=== PATIENT | female | born 1945 | race Hispanic/Latino ===

== ENCOUNTER 2016-12-07 08:49 | Day surgery (SDC) | payer MEDICARE ==
[2016-12-06 12:33] VITALS: BMI 26.1
[2016-12-07 09:17] LABS: BASO # 0.1 K/uL (0.0-0.2); BASO % 1.1 % (0.0-2.0); EOS # 0.2 K/uL (0.0-0.7); EOS % 3.1 % (0.0-4.0); HEMATOCRIT 41.5 % (34.0-47.0); LYMPH # 1.6 K/uL (1.0-4.3); LYMPH % 20.7 % (20.0-40.0); MEAN CELL VOLUME 86.8 fL (81.0-99.0); MEAN CORPUSCULAR HEMOGLOBIN 28.9 pg (27.0-31.0); MEAN CORPUSCULAR HGB CONC 33.3 g/dL (33.0-37.0); MONO # 0.7 K/uL (0.0-0.8); RED CELL DISTRIBUTION WIDTH 15.2 % (11.5-14.5); WHITE BLOOD COUNT 7.7 K/uL (4.8-10.8)
[2016-12-07 09:24] LABS: CHLORIDE 106 mmol/L (98-107)
[2016-12-07 09:25] LABS: POTASSIUM 3.7 mmol/L (3.6-5.2); SODIUM 144 mmol/L (132-148)
[2016-12-07 09:27] LABS: GFR AFRICAN-AMERICAN > 60
[2016-12-07] MEDS ORDERED: Iodixanol 320 MG/ML 100 ML BOTTLE IV ONE ×2 (09:27→09:30)
[2016-12-07 09:28] LABS: BLOOD UREA NITROGEN 13 mg/dL (7-17); CALCIUM 8.7 mg/dl (8.6-10.4); CARBON DIOXIDE 25 mmol/L (22-30); GLUCOSE,RANDOM 95 mg/dL (65-105)
[2016-12-07] MEDS ORDERED: Midazolam 2 MG/2 ML VIAL ONE (09:58)
[2016-12-07] MEDS ORDERED: Sodium Chloride 0.9% 500 ML IV SCH (12:00)
[2016-12-07] MEDS ORDERED: Sodium Chloride 0.9% 500 ML IV ONE ×2 (12:15)
[2016-12-07] MEDS ORDERED: Sodium Chloride 0.9% 1,000 ML IV ONE (12:35)
--- NOTE | 2016-12-07 13:07 | OP ---
PROCEDURE DATE: 12/07/2016 PERFORMING PHYSICIAN: Patrick Landrum MD REFERRING PHYSICIAN: Izaiah Jamison DPM PREOPERATIVE DIAGNOSIS: Peripheral vascular disease with claudication. POSTOPERATIVE DIAGNOSIS: Diminished antegrade arterial flow in distal circulation. PROCEDURE PERFORMED: Retrograde access right common femoral artery, selective catheter placement in the left common femoral artery via a contralateral approach, abdominal aortography with bilateral mary ofemoral runoff, bilateral lower extremity angiography. COMPLICATIONS: None. ANESTHESIA: Conscious sedation with Versed. HISTORY: As follows: The patient is a 70-year-old female with a past medical history of hypercholes terolemia who has lifestyle limiting claudication. Symptoms are worse with walking one block. The p atient was referred for angiography for further evaluation. Ankle brachial index was abnormal with a left ankle brachial index of 0.73 and a right brachial index of 0.77. DESCRIPTION OF PROCEDURE: Procedure is as follows: Informed consent was obtained. Retrograde acces s was obtained in the right common femoral artery. Omniflush catheter was advanced and abdominal aor tography was performed. Selective catheter placement was performed in the left common femoral artery via contralateral approach. Angiography using digital subtraction was performed to the foot. The c atheter was removed. Completion angiography was performed via the sheath in the right common femoral artery. All catheters were removed and manual pressure was applied to achieve hemostasis. FINDINGS: The infrarenal abdominal aorta is free of aneurysm or dissection. Bilateral renal arterie s arise normally and are free of significant disease. There is no significant inflow disease. There is mild atherosclerosis of bilateral common femoral arteries. Eccentric calcification is noted of t he superficial femoral arteries bilaterally. Three-vessel runoff is noted to the feet bilaterally. However, there is markedly diminished tibioperoneal flow. CONCLUSIONS: 1. No angiographic evidence of obstructive peripheral vascular disease. 2. Slow antegrade flow in the tibioperoneal system. PLAN: The patient will need medical therapy. Recommend the addition of Plavix. Patrick Landrum MD cc: 258 TT: 12/07/2016 13:06:49 sn
[2016-12-07 14:11] VITALS: TEMP 97.6
[2016-12-07 15:36] VITALS: O2SAT 97
[2016-12-07 16:33] VITALS: BP 127/68; PULSE 65; RESP 16
== END 2016-12-07 16:25 | disposition home or self-care (01) ==
LOC: C.SPRAD 08:49
PROVIDERS: ATTEND Internal Medicine Cardiovascular Disease
DX: I73.9 Peripheral vascular disease, unspecified (principal)
CPT/HCPCS: 36200; 36415; 75625; 75716; 80048; 85025; 85610; 85730; 94770; C1766; C1769; J1644; J2250; J3010; J7040; Q9967